=== PATIENT | female | born 1960 | race Caucasian/White ===

== ENCOUNTER → 2017-12-25 | Outpatient (CLI) | payer BC ==
[~2017-12-25] MED LIST: CRUTCH3 USE; HYDACE5 PO; IBUP800 PO
== END | disposition home or self-care (01) ==
LOC: LAB SHORT 10:50 → PLD 10:50
DX: C44.319 Basal cell carcinoma of skin of other parts of face (principal)
CPT/HCPCS: 88305

== ENCOUNTER → 2020-08-26 | Outpatient (CLI) | payer BC | LOC: LAB SHORT 11:10 | DX: D48.5 Neoplasm of uncertain behavior of skin (principal); C76.42 Malignant neoplasm of left upper limb | CPT/HCPCS: 88305 ==

== ENCOUNTER → 2020-12-13 | Outpatient (CLI) | payer BC ==
[2020-12-15 15:11] LABS: HPV 16 Negative (Negative); HPV 18 Negative (Negative); HPV OTHER HR TYPES Negative (Negative)
== END ==
LOC: LAB SHORT 17:55 → LAB 17:55
PROVIDERS: Registered Nurse Community Health
DX: Z12.4 Encounter for screening for malignant neoplasm of cervix (principal)
CPT/HCPCS: 87624; G0123

== ENCOUNTER → 2021-02-15 | Outpatient (CLI) | payer BC | LOC: LAB SHORT 11:24 → LAB 11:24 | DX: D48.5 Neoplasm of uncertain behavior of skin (principal); L57.8 Other skin changes due to chronic exposure to nonionizing radiation | CPT/HCPCS: 88305 ==

== ENCOUNTER → 2021-03-08 | Outpatient (CLI) | payer BC | LOC: LAB 15:02 → LAB SHORT 15:02 | DX: D48.5 Neoplasm of uncertain behavior of skin (principal); L81.4 Other melanin hyperpigmentation; D22.61 Melanocytic nevi of right upper limb, including shoulder; Z91.013 Allergy to seafood | CPT/HCPCS: 88305 ==

== ENCOUNTER → 2021-08-16 | Outpatient (CLI) | payer BC | END | disposition home or self-care (01) | LOC: LAB SHORT 11:14 → LAB 11:14 | DX: C44.622 Squamous cell carcinoma of skin of right upper limb, including shoulder (principal) | CPT/HCPCS: 88305 ==

== ENCOUNTER → 2021-10-19 | Outpatient (CLI) | payer BC | END | disposition home or self-care (01) | LOC: PLD 11:12 → LAB SHORT 11:12 | DX: C44.622 Squamous cell carcinoma of skin of right upper limb, including shoulder (principal) | CPT/HCPCS: 88305 ==

== ENCOUNTER → 2022-09-12 | Outpatient (CLI) | payer BC | END | disposition home or self-care (01) | LOC: PLD 11:22 | DX: D48.5 Neoplasm of uncertain behavior of skin (principal) | CPT/HCPCS: 88305 ==

== ENCOUNTER → 2022-11-30 | Outpatient (CLI) | payer BC | END | disposition home or self-care (01) | LOC: LAB SHORT 07:55 → PLD 07:55 | DX: C44.622 Squamous cell carcinoma of skin of right upper limb, including shoulder (principal); D48.5 Neoplasm of uncertain behavior of skin | CPT/HCPCS: 88305 ==

== ENCOUNTER 2024-02-19 09:10 | Day surgery (SDC) | payer BC ==
[~2024-02-19] VITALS: Ht 165.1 cm; Wt 59.2 kg
[2024-02-19] MEDS ORDERED: VITAMIN D325 MC3 (09:52)
[2024-02-19] MEDS ORDERED: Lactated Ringer's 1,000 ML IV ONE ×3 (10:56→11:36)
[2024-02-19] MEDS ORDERED: propofoL 50 ML IV ONE ×2 (11:00→11:40)
[2024-02-19] MEDS ORDERED: Lidocaine HCl/Pf 1% 5 ML VIAL ONE (11:00)
[2024-02-19 12:24] VITALS: BP 120/77
== END 2024-02-19 12:20 | disposition home or self-care (01) ==
LOC: ORSCSDS 09:10
PROVIDERS: Internal Medicine Gastroenterology
PROC: 0DBN8ZX Excision of Sigmoid Colon, Via Natural or Artificial Opening Endoscopic, Diagnostic (ICD-10-PCS; principal; 2024-02-19 10:30)
DX: Z12.11 Encounter for screening for malignant neoplasm of colon (principal); D12.5 Benign neoplasm of sigmoid colon; Z83.719 Family history of colon polyps, unspecified; K62.89 Other specified diseases of anus and rectum; K57.30 Diverticulosis of large intestine without perforation or abscess without bleeding; Z87.891 Personal history of nicotine dependence
CPT/HCPCS: 88305; J2001; J2003; J2704; J7120